=== PATIENT | female | born 1945 | race Caucasian/White ===

== ENCOUNTER → 2023-06-02 13:42 | Outpatient (BNVA) | payer MEDICARE, OTHER, SELFPAY | PROVIDERS: PCP Family Medicine; Referring Provider Family Medicine; Visit Provider Specialist | DX: I95.1 Orthostatic hypotension (principal); G47.10 Hypersomnia, unspecified; R56.9 Unspecified convulsions; G45.0 Vertebro-basilar artery syndrome; G31.84 Mild cognitive impairment of uncertain or unknown etiology; R51.9 Headache, unspecified; R42 Dizziness and giddiness | CPT/HCPCS: 82550; 82607; 83516; 83519; 85651; 99205 ==

== ENCOUNTER → 2023-06-16 08:45 | Outpatient (BNVA) | payer MEDICARE, OTHER, SELFPAY | PROVIDERS: PCP Family Medicine; Visit Provider Specialist | DX: G31.84 Mild cognitive impairment of uncertain or unknown etiology (principal); R56.9 Unspecified convulsions | CPT/HCPCS: 95812; 95816 ==

== ENCOUNTER 2023-06-23 12:33 | Outpatient (CLI) | payer MEDICARE, OTHER, SELFPAY ==
--- NOTE | 2023-06-23 13:00 | MR_ITS ---
WS: [id number] ANGIOGRAPHY [place] [facility] [place] HISTORY: R51.9 - Headache, unspecified COMPARISON: None available. TECHNIQUE: 3-D MR angiography is performed of the [place]. All images are reviewed including source images. Distal vertebral and basilar arteries are intact with no significant stenosis or plaque. Codominant v ertebral arteries. Posterior cerebral arteries are normal course and caliber. Posterior communicating arteries are both patent. Intracranial portion of the internal carotid arteries are normal course and caliber. No significant a therosclerosis, stenosis or aneurysm identified. There is a small amount of plaque through the cavern ous carotid arteries. Middle and anterior cerebral arteries are both patent with no significant disea se. Anterior communicating artery is also normal. IMPRESSION: Minimal plaque noted within the distal intracranial carotid arteries but no stenosis and no aneurysm.
== END 2023-06-23 12:34 | disposition home or self-care (01) ==
LOC: RAD 12:33
PROVIDERS: PCP Family Medicine; Visit Provider Specialist
DX: R51.9 Headache, unspecified (principal); I95.1 Orthostatic hypotension; G47.10 Hypersomnia, unspecified; R56.9 Unspecified convulsions; G45.0 Vertebro-basilar artery syndrome; G31.84 Mild cognitive impairment of uncertain or unknown etiology
CPT/HCPCS: 70544